=== PATIENT | male | born 1955 | race Caucasian/White ===

== ENCOUNTER 2018-08-03 10:13 | Outpatient (CLI) | payer MEDICARE ==
[2018-08-03] MEDS ORDERED: ISOVUE-370 76%-LOCM 1 ML ONE (14:22)
== END 2018-08-03 10:14 | disposition home or self-care (01) ==
LOC: BICCT 10:13
PROVIDERS: ATTEND Internal Medicine Gastroenterology
DX: R10.9 Unspecified abdominal pain (principal); R63.4 Abnormal weight loss; M62.58 Muscle wasting and atrophy, not elsewhere classified, other site; K43.2 Incisional hernia without obstruction or gangrene
CPT/HCPCS: 74177; 82565